=== PATIENT | male | born 1970 | race Caucasian/White ===

== ENCOUNTER 2023-06-22 22:42 | Emergency (ER) | payer OTHER, SELFPAY ==
--- NOTE | 2023-06-22 22:45 | DI.RAD_ITS ---
Exam(s) XR FOREARM RT XR HAND RT COMPLETE EXAM: XR FOREARM RT and XR hand RT complete CLINICAL HISTORY: laceration of forearm, r/o FB/glass. TECHNIQUE: 2D digital imaging was performed of the right hand and forearm. Five views were obtained . AP, oblique and lateral views were obtained. COMPARISON: No previous for comparison. FINDINGS: BONES: No acute fracture is present. No bony destructive lesion is seen. Visualized portion of elbow and wrist joints are unremarkable. SOFT TISSUE: There is a 5 mm crescentic foreign body in the posterior distal forearm soft tissues wit h overlying soft tissue swelling. IMPRESSION: 5 mm foreign body in the soft tissues posterior to the distal forearm with overlying soft tissue swel ling. DATA REPOSITORY: RADIATION DOSE DELIVERED:
[2023-06-22 22:46] VITALS: BP 138/74; PULSE 85; RESP 16; TEMP 36.9; O2SAT 98
[2023-06-22] MEDS: Normal Saline 1,000 ML 1000 ML IV (22:54)
--- NOTE | 2023-06-22 22:58 | W.ED.GENAD ---
Discharge Plan Disposition Patient Disposition: Home Condition: Good Discharge Details Clinical Impression: Rupture of extensor digitorum tendon, Laceration of forearm, right Primary Care Provider: None,None ED Provider: Pete Muñoz Home Meds and New Rx's Prescriptions: No Action No Known Home Meds Discharge Instructions Instructions: Laceration (ED) Additional Instructions: At this time unfortunately you have seemingly lacerated the tendons of the extensors of your fingers. [facility] orthopedic surgery feels that surgical intervention is indicated. They will contact you tomorrow for an appointment time for surgical intervention. Please keep your arm dry at all times until you are reassessed by them. Take Tylenol and Motrin as needed for pain. If you notice any worsening of your symptoms, or any new symptoms such as vomiting, diarrhea, fever, chills, shortness of breath, chest pain, numbness, weakness, or fainting , please return immediately to the emergency department for reevaluation. Please follow up with your primary care provider as soon as possible for reassessment and reevaluation. As always, it was a pleasure participating in your medical care today. HPI General Date/Time Provider Initiated Documentation: 06/22/23 22:48. 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 Patient states that about an hour ago he was playing with his dog when the dog pushed him up against glass and his arm went through a glass window/door. He had significant bleeding, bandage to the area, came in for further assessment. He denies any significant numbness but does admit to tingling in the tips of his fingers. He also admits to an inability to extend any of his fingers except for his thumb. He denies any pain aside for the area where he developed a laceration. He states that my tetanus is up-to-date, I am 100% sure, it is within the last 10 years, I do not need it updated. Patient has no other complaints at this time. No other modifying factors. Related Data Home Medications Medication Instructions Recorded Confirmed Unknown [No Known Home Meds] 06/22/23 06/22/23 Allergies Allergy/AdvReac Type Severity Reaction Status Date / Time ofelia Allergy Skin Rash Verified 06/22/23 22:57 General Stated Complaint: Laceration MAGALY: 3 Review of Systems All systems reviewed & are unremarkable except as noted in HPI and below Exam Narrative Exam Narrative: 1.Const: Well-nourished, Well-developed, appearing stated age 2.Eyes: PERRL, no conjunctival injection, and symmetrical lids. 3.ENT: Atraumatic external nose and ears. Moist MM. Neck: Symmetric, trachea midline, No thyromegaly. 4.CVS: +S1/S2, No murmurs or gallops. Peripheral pulses 2+ and equal in all extremities. Brisk capillary refill in all extremities. 5.RESP: Unlabored respiratory effort. Clear to auscultation bilaterally. No wheezes rales or rhonchi 6.GI: Soft, Nontender/Nondistended, No hepatosplenomegaly. No guarding or rebound. 7.MSK: Right forearm demonstrates a 4-1/2 cm laceration over the dorsal aspect of the forearm just proximal to the distal radius/ulna. Mild oozing of blood. No pulsatile hemorrhage. Small superficial laceration noted over the medial aspect of the wrist and a small superficial laceration noted over the lateral aspect of the hand. No active bleeding from those locations. Symmetrically palpable radial and ulnar pulses. Capillary refill less than 2 seconds to all digits. Intact sensation to light touch of the radial, median and ulnar nerves demonstrated by testing in the dorsal web space of the thumb, the distal palmar aspect of the index finger, and the lateral surface of the fifth finger. 2 point discrimination intact to 5mm (up to 6mm can be normal in digits 3-5) of discrimination in the affected digit. Patient demonstrates intact hand gericare aide, and spreading of the 2nd through 5th digits. Intact recurrent median nerve as demonstrated by ability to move thumb fully through opposition, abduction and flexion. No snuffbox tenderness. Patient has normal flexion and extension strength in the wrist, as well as medial and lateral movement strength in the wrist. Unfortunately fingers demonstrate notable good gericare aide strength and flexion, however his second third fourth and fifth digit demonstrates no ability to extend at the PIP, middle or DIP joints. 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 Sensation grossly intact, no focal neurologic deficits. 10.Psych: (AAO) x3. Appropriate mood and affect Course Vital Signs Vital signs: Vital Signs Temperature 36.9 C 06/22/23 22:46 Pulse 85 06/22/23 22:46 Respiratory Rate 16 06/22/23 22:46 Blood Pressure 138/74 06/22/23 22:46 Pulse Oximetry 98 06/22/23 22:46 Temperature 36.9 C 06/22/23 22:46 Pulse 85 06/22/23 22:46 Respiratory Rate 16 06/22/23 22:46 Respiratory Effort Normal 06/22/23 22:49 Blood Pressure 138/74 06/22/23 22:46 Pulse Oximetry 98 06/22/23 22:46 Procedures Laceration Laceration 1: Site: upper extremity Side (If applicable): right Size (cm): 5 Description: linear Depth: involves muscle layer and involves tendon Local Anesthetic: Lidocaine 1% Amount of anesthesia used (mL): 5 Pre-repair: wound explored (No active hemorrhage. 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 Patient states that about an hour ago he was playing with his dog when the dog pushed him up against glass and his arm went through a glass window/door. He had significant bleeding, bandage to the area, came in for further assessment. He denies any significant numbness but does admit to tingling in the tips of his fingers. He also admits to an inability to extend any of his fingers except for his thumb. He denies any pain aside for the area where he developed a laceration. He states that my tetanus is up-to-date, I am 100% sure, it is within the last 10 years, I do not need it updated. Patient has no other complaints at this time. No other modifying factors. Right forearm demonstrates a 5-1/2 cm laceration over the dorsal aspect of the forearm just proximal to the distal radius/ulna. Mild oozing of blood. No pulsatile hemorrhage. Small superficial laceration noted over the medial aspect of the wrist and a small superficial laceration noted over the lateral aspect of the hand. No active bleeding from those locations. Symmetrically palpable radial and ulnar pulses. Capillary refill less than 2 seconds to all digits. Intact sensation to light touch of the radial, median and ulnar nerves demonstrated by testing in the dorsal web space of the thumb, the distal palmar aspect of the index finger, and the lateral surface of the fifth finger. 2 point discrimination intact to 5mm (up to 6mm can be normal in digits 3-5) of discrimination in the affected digit. Patient demonstrates intact hand gericare aide, and spreading of the 2nd through 5th digits. Intact recurrent median nerve as demonstrated by ability to move thumb fully through opposition, abduction and flexion. No snuffbox tenderness. Patient has normal flexion and extension strength in the wrist, as well as medial and lateral movement strength in the wrist. Unfortunately fingers demonstrate notable good gericare aide strength and flexion, however his second third fourth and fifth digit demonstrates no ability to extend at the PIP, middle or DIP joints. Concern for extensor digitorum laceration, including extensor digit he minimi. Thumb muscles and tendons appear to be intact otherwise. Major arterial structures appear to be intact. Major neurologic structures appear to be intact. Will reach out to [facility] for further surgical options. We will give 3 g of Ancef and update the patient's tetanus. Patient consents to tetanus update. 2 AM Discussed the case with Dr. Dennis of [facility] orthopedics. He recommends surgery tomorrow or the following day. Recommends gross reapproximation of the skin and splinting. X-ray did show evidence of a small radiopacity of glass which is thought to be an hematoma with laceration. The patient's hand/arm was anesthetized, the hematoma was completely removed. The wound was then washed out extensively. No foreign body can be seen or palpated with instrumentation. The area was then sutured with 3 simple interrupted sutures. Patient tolerated this well. A splint/sugar-tong splint was then placed with extension of the wrist. Patient will be discharged with close orthopedic follow-up. We did confirm with [facility] the patient's contact information. Discussed red flags for which to return. I have extensively reviewed the treatment plan and discharge instructions with the patient. I have addressed all patient concerns at this time. The patient was made aware of what symptoms to monitor for that would warrant a return to the emergency department. Discussed the plan with the patient, they demonstrate verbal understanding and agreement with our assessment and plan at this time. The documentation in this chart was dictated using [employer] dictation software. Please excuse any dictation errors. FINDINGS: Bones/joints: Normal. Soft tissues: Minute linear radiopacity is demonstrated within an area of increased attenuation in dorsal lateral soft tissues about distal radius IMPRESSION: Radiopacity consistent with a glass fragment in what is favored to be a hematoma subjacent to laceration in dorsal lateral aspect of the forearm Thank you for allowing us to participate in the care of your patient. Dictated and Authenticated by: Bryant Locke DO 06/22/2023 11:51 PM Eastern Time ([place] & [place]) FINDINGS: Bones/joints: Normal. Soft tissues: Normal. IMPRESSION: No acute findings. Thank you for allowing us to participate in the care of your patient. Dictated and Authenticated by: Bryant Locke DO 06/23/2023 12:38 AM Eastern Time ([place] & [place]) Quality:SDOH Health Related Social Needs: No Data to Display PFSH All Active Problems (Updated 06/23/23 @ 02:11 by Pete Muñoz DO) Laceration of forearm, right (Acute) Rupture of extensor digitorum tendon (Acute) Social History Smoking risk assessment performed?: No
[2023-06-22 23:00] LABS: Abs Immature Grans 0.02 10^3/uL (0.0-0.06); Absolute Basophil Count 0.12 10^3/uL (0.0-0.2); Absolute Eosinophil Count 0.32 10^3/uL (0.0-0.7); Absolute Lymphocyte Count 2.72 10^3/uL (1.2-3.4); Absolute Monocyte Count 0.69 10^3/uL (0.1-0.8); Absolute Neutrophil Count 5.26 10^3/uL (1.2-6.7); Basophils % 1.3; Eosinophils % 3.5; HCT 41.2 % (40.0-50.0); HGB 14.5 g/dL (13.5-17.5); Immature Grans % 0.2; Lymphocytes % 29.8; MCH 32.4 pg (27.0-33.0); MCHC 35.2 % (32.0-36.0); MCV 92 fL (80-95); MPV 8.6 fL (8.0-11.0); Monocytes % 7.6; Neutrophils % 57.6; Platelet Count 312 10^3/uL (130-400); RBC 4.48 10^6/uL (4.36-5.78); RDW 12.1 % (11.8-14.1); RDW-SD 41.1 fL; WBC 9.13 10^3/uL (4.4-10.8)
[2023-06-22 23:15] LABS: ETHANOL BLOOD 232.9 mg/dL (<10)
[2023-06-22 23:18] LABS: ALT 22 U/L (16-63); AST 19 U/L (15-37); Albumin 4.1 g/dL (3.4-5.0); Alkaline Phosphatase 52 U/L (46-116); Anion Gap 11.5 mmol/L (3-11); BUN 13 mg/dL (7-18); Bilirubin, Total 0.3 mg/dL (0.2-1.0); CO2 25.5 mmol/L (21.0-32.0); CREATININE 0.9 mg/dL (0.70-1.30); Calcium 8.2 mg/dL (8.5-10.1); Chloride 104 mmol/L (98-107); Glucose 100 mg/dL (74-106); Potassium 3.7 mmol/L (3.5-5.1); Sodium 141 mmol/L (136-145); Total Protein 7.5 g/dL (6.4-8.2)
[2023-06-22] MEDS: ceFAZolin 3,000 MG in Normal Saline 100 ML 200 MG IVPB (23:42)
--- NOTE | 2023-06-22 23:51 | DI.VRAD_ITS ---
PROCEDURE INFORMATION: Exam: XR Right Forearm Exam date and time: 06/22/2023 11:04 PM Age: 53 years old Clinical indication: Injury or trauma; Other: Arm through glass; Arm, lower; Right; Injury date: 06/22/23; Injury details: Laceration of forearm, R/O fb/glass TECHNIQUE: Imaging protocol: Radiologic exam of the right forearm. Views: 2 views. COMPARISON: No relevant prior studies available. FINDINGS: Bones/joints: Normal. Soft tissues: Minute linear radiopacity is demonstrated within an area of increased attenuation in dorsal lateral soft tissues about distal radius IMPRESSION: Radiopacity consistent with a glass fragment in what is favored to be a hematoma subjacent to laceration in dorsal lateral aspect of the forearm Dictated and Authenticated by: Bryant Locke MD. Ordering:AGA Freeman MD
--- NOTE | 2023-06-23 00:39 | DI.VRAD_ITS ---
PROCEDURE INFORMATION: Exam: XR Right Hand Exam date and time: 06/23/2023 12:23 AM Age: 53 years old Clinical indication: Injury or trauma; Other: Arm through glass; Blunt trauma (contusions or hematomas); Hand; Right; Injury date: 06/22/23; Injury details: Eval for injury per [facility] orth[facility] TECHNIQUE: Imaging protocol: Radiologic exam of the right hand. Views: 3 or more views. COMPARISON: CR XR FOREARM RT 06/22/2023 11:04 PM FINDINGS: Bones/joints: Normal. Soft tissues: Normal. IMPRESSION: No acute findings. Dictated and Authenticated by: Bryant Locke MD. Ordering:AGA Freeman MD
== END 2023-06-23 02:21 | disposition home or self-care (01) ==
LOC: ER 06-23 02:23
PROVIDERS: Emergency Provider Student in an Organized Health Care Education/Training Program
DX: S51.811A Laceration without foreign body of right forearm, initial encounter (principal); S66.811A Strain of other specified muscles, fascia and tendons at wrist and hand level, right hand, initial encounter; W25.XXXA Contact with sharp glass, initial encounter
CPT/HCPCS: 12002; 80053; 90471; 90715; 96365; 99284; 73090; 73130; 80320; 85025; 99283; J0690